=== PATIENT | male | born 1985 | race Hispanic/Latino ===

== ENCOUNTER 2021-09-17 23:03 | Emergency (ER) | payer OTHER ==
[~2021-09-17] VITALS: Ht 170.2 cm; Wt 74.4 kg
[2021-09-17 23:25] VITALS: BP 121/80
== END 2021-09-17 23:30 | disposition home or self-care (01) ==
LOC: EDH 23:03
DX: S50.812A Abrasion of left forearm, initial encounter (principal); F41.9 Anxiety disorder, unspecified; F32.A Depression, unspecified; X58.XXXA Exposure to other specified factors, initial encounter; Y93.89 Activity, other specified; Y92.89 Other specified places as the place of occurrence of the external cause; Y99.8 Other external cause status